=== PATIENT | male | born 2000 ===

== ENCOUNTER 2021-10-30 21:01 | Emergency (ER) | payer OTHER, SELFPAY ==
[2021-10-30] MEDS ORDERED: LIDOCAINE 1% W/EPI 1:100,000 MDV 50 ML VIAL ONE (22:04)
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
[2021-10-30 23:18] VITALS: BP 118/82; TEMP 98.9; O2SAT 100
== END 2021-10-30 22:49 | disposition home or self-care (01) ==
LOC: ER 21:01
PROC: 0JQP0ZZ Repair Left Lower Leg Subcutaneous Tissue and Fascia, Open Approach (ICD-10-PCS; principal; 2021-10-30)
DX: S81.812A Laceration without foreign body, left lower leg, initial encounter (principal); W26.8XXA Contact with other sharp object(s), not elsewhere classified, initial encounter
CPT/HCPCS: 99284

== ENCOUNTER 2021-11-14 20:13 | Emergency (ER) | payer SELFPAY ==
--- OUTSIDE RECORDS SUMMARY | 2021-11-14 20:16 | XMS REPORT | Continuity of Care Document ---
:2000 Author Organization [facility] t Address [address] [place] [address] Dr. Wells [address] [place] [id number] Care Team Providers Name Role Phone Unavailable Unavailable Unavailable Problems This patient has no known problems. Allergies, Adverse Reactions, Alerts This patient has no known allergies or adverse reactions. Medications This patient has no known medications. Procedures This patient has no known procedures. Results This patient has no known results.
--- NOTE | 2021-11-14 21:05 | ER ---
Nurse's Notes [facility] Name: Roseanne Frias Age: 20 yrs Sex: Male : 2000 Arrival Date: 11/14/2021 Time: 20:20 Bed 11 Private MD: Diagnosis: Encounter for removal of sutures Presentation: 11/14 20:50 Acuity: NIKKIE 4 lp1 20:53 Chief complaint: Patient states: Suture removal to posterior left lower leg; Patient lp1 has sutures done here in ED. Coronavirus screen: At this time, the client does not indicate any symptoms associated with coronavirus-19. Ebola Screen: No symptoms or risks identified at this time. Initial Sepsis Screen: Does the patient meet any 2 criteria? No. Patient's initial sepsis screen is negative. Does the patient have a suspected source of infection? No. Patient's initial sepsis screen is negative. Risk Assessment: Do you want to hurt yourself or someone else? Patient reports no desire to harm self or others. Onset of symptoms was November 14, 2021. 20:53 Method Of Arrival: Ambulatory lp1 Historical: - Allergies: 20:54 No Known Allergies; lp1 - Home Meds: 20:54 None [Active]; lp1 - PMHx: 20:54 None; lp1 - PSHx: 20:54 None; lp1 - Immunization history:: Adult Immunizations up to date. - Social history:: Smoking status: Reported history of juuling and/or vaping. Screenin:54 Abuse screen: Denies threats or abuse. Denies injuries from another. Nutritional lp1 screening: No deficits noted. Tuberculosis screening: No symptoms or risk factors identified. Fall Risk None identified. Assessment: 20:54 General: Appears in no apparent distress. Behavior is calm, cooperative, appropriate lp1 for age. Pain: Denies pain. Neuro: No deficits noted. Cardiovascular: No deficits noted. Respiratory: No deficits noted. GI: No signs and/or symptoms were reported involving the gastrointestinal system. : No signs and/or symptoms were reported regarding the genitourinary system. EENT: No signs and/or symptoms were reported regarding the EENT system. Derm: Skin is pink, warm \T\ dry. Wound noted Other: Sutures site noted to posterior left lower leg/calf, skin appears intact. Musculoskeletal: No deficits noted. 21:12 Reassessment: Sutures removed by Provider, skin appears intact. lp1 Vital Signs: 20:53 BP 132 / 81; Pulse 82; Resp 16; Temp 98.8(TE); Pulse Ox 100% on R/A; Weight 74.84 kg lp1 (R); Height 5 ft. 8 in. (172.72 cm); Pain 0/10; 20:53 Body Mass Index 25.09 (74.84 kg, 172.72 cm) lp1 ED Course: 20:20 Patient arrived in ED. ag3 20:26 Herbert Collins PA is PHCP. cp 20:26 Herbert Rothman MD is Attending Physician. cp 20:50 Arm band placed on right wrist. lp1 20:51 Triage completed. lp1 20:53 Dhara Zimmerman, RN is Primary Nurse. lp1 20:55 Patient has correct armband on for positive identification. lp1 20:55 Patient did not have IV access during this emergency room visit. lp1 21:11 No provider procedures requiring assistance completed. lp1 Administered Medications: No medications were administered Medication: 20:55 VIS not applicable for this client. lp1 Outcome: 21:05 Discharge ordered by . cp 21:11 Discharged to home ambulatory. lp1 21:11 Condition: good 21:11 Discharge instructions given to patient, Instructed on discharge instructions, follow up and referral plans. Demonstrated understanding of instructions, follow-up care. 21:12 Patient left the ED. lp1 Signatures: Dhara Zimmerman RN RN lp1 Herbert Collins PA PA cp Gomez, Alice ag3
--- NOTE | 2021-11-14 21:05 | EDPHYS ---
Physician Documentation [facility] Name: Roseanne Frias Age: 20 yrs Sex: Male : 2000 Arrival Date: 11/14/2021 Time: 20:20 Bed 11 Private MD: ED Physician Herbert Rothman HPI: 11/14 20:55 This 20 yrs old Male presents to ER via Ambulatory with complaints of Suture Removal. cp 20:55 The patient has sutures on the left calf. cp 20:55 Previous treatment: The patient was initially treated 15 day(s) ago, the care was cp rendered at [facility], Treatment type: The patient's original treatment included sutures. Sutures/bon progress: The patient has no c/o's. The wound is well-healing with no redness, swelling, discharge, or dehiscence reported. Historical: - Allergies: 20:54 No Known Allergies; lp1 - Home Meds: 20:54 None [Active]; lp1 - PMHx: 20:54 None; lp1 - PSHx: 20:54 None; lp1 - Immunization history:: Adult Immunizations up to date. - Social history:: Smoking status: Reported history of juuling and/or vaping. ROS: 20:55 Skin: Positive for of the left calf, history of laceration. cp 20:55 Constitutional: Negative for body aches, chills, fever. cp 20:55 Cardiovascular: Negative for chest pain. 20:55 Respiratory: Negative for cough, shortness of breath, wheezing. 20:55 Abdomen/GI: Negative for abdominal pain, nausea, vomiting, and diarrhea. 20:55 All other systems are negative. Exam: 20:55 Constitutional: The patient appears in no acute distress, alert, awake, non-toxic, well cp developed, well nourished, afebrile 20:55 Head/Face: Normocephalic, atraumatic. cp 20:55 Neck: ROM/movement: is normal, is supple, without pain, no range of motions limitations. 20:55 Cardiovascular: Rate: normal. 20:55 Respiratory: the patient does not display signs of respiratory distress, Respirations: normal, no use of accessory muscles, no retractions. 20:55 Back: pain, is absent, ROM is normal. 20:55 Skin: Wound recheck: Suture laceration closure: the wound is healing well, the edges are well approximated, no evidence of dehiscence, no drainage, no erythema, no swelling, times three located left calf. Vital Signs: 20:53 BP 132 / 81; Pulse 82; Resp 16; Temp 98.8(TE); Pulse Ox 100% on R/A; Weight 74.84 kg lp1 (R); Height 5 ft. 8 in. (172.72 cm); Pain 0/10; 20:53 Body Mass Index 25.09 (74.84 kg, 172.72 cm) lp1 MDM: 20:54 Patient medically screened. [facility] 21:05 Data reviewed: vital signs, nurses notes. 21:05 Response to treatment: the patient's symptoms have markedly improved after treatment, cp and as a result, I will discharge patient. Administered Medications: No medications were administered Disposition Summary: 11/14/21 21:05 Discharge Ordered Location: Home cp Problem: new cp Symptoms: have improved cp Condition: Stable cp Diagnosis - Encounter for removal of sutures cp Followup: cp - With: Private Physician - When: As needed - Reason: Worsening of condition Discharge Instructions: - Discharge Summary Sheet cp - How to Change Your Wound Dressing cp - Suture Removal, Care After cp Forms: - Medication Reconciliation Form cp - Thank You Letter cp - Antibiotic Education cp - Prescription Opioid Use cp Signatures: Herbert Rothman MD MD cha Pena, Laura, RN RN lp1 Herbert Collins PA PA cp
[2021-11-14 21:20] VITALS: BP 132/81; TEMP 98.8; O2SAT 100
== END 2021-11-14 21:12 | disposition home or self-care (01) ==
LOC: ER 20:13
DX: Z48.02 Encounter for removal of sutures (principal)
CPT/HCPCS: 99281